=== PATIENT | female | born 1975 | race Caucasian/White ===

== ENCOUNTER 2017-05-18 13:22 | Emergency (ER) | payer OTHER ==
[~2017-05-18] VITALS: Wt 74.8 kg
[~2017-05-18 13:22] MED LIST: 'PARAFON FORTE500 M1 PO; BACTRIM DS 8001 TA1 PO; CLEOCIN HCL300 MG PO; FUROSEMIDE20 M1 PO; HYDROCODONE BIT1 T11 PO; IBU800 MG PO; NAPROSYN500 MG PO; NORCO 5-325 TA1 EACH PO; PENICILLIN VK500 MG PO; PENICILLIN-VK500 M1 PO; PREDNISONE20 M1 PO; PYRIDIUM200 MG PO; TORADOL10 MG PO; VICODIN 5-3001 EACH PO; VICODIN 5/500 505 MG PO
[2017-05-18] MEDS ORDERED: CLEOCIN HCL150 MG PO (13:31)
[2017-05-18 14:01] LABS: BASO % 0.3 % (0.0-1.0); EOS # 0.1 10*3/uL (0.0-0.4); EOS % 0.6 % (1.0-4.0); HEMATOCRIT 34.2 % (37.0-47.0); HEMOGLOBIN 11.7 g/dl (12.0-16.0); IG # 0.1 10*3/uL (0.0-0.1); LYMPH # 2.2 10*3/uL (1.3-4.4); LYMPH % 21.2 % (27.0-41.0); MEAN CELL VOLUME 94.5 fl (81.0-99.0); MEAN CORPUSCULAR HGB 32.3 pg (27.0-31.0); MEAN CORPUSCULAR HGB CONC 34.2 g/dl (33.0-37.0); MEAN PLATELET VOLUME 8.6 fl (9.6-12.3); MONO # 0.7 10*3/uL (0.1-1.0); MONO % 6.6 % (3.0-9.0); NEUT # 7.3 10*3/uL (2.3-7.9); NEUT % 70.6 % (47.0-73.0); PLATELET COUNT AUTOMATED 394 10*3/uL (130-400); RED BLOOD COUNT 3.62 10*6/uL (4.10-5.10); RED CELL DISTRI WIDTH 13.5 % (0-14.5); WHITE BLOOD COUNT 10.4 10*3/uL (4.8-10.8)
[2017-05-18 14:16] LABS: ALBUMIN 2.4 gm/dl (3.1-4.5); ALKALINE PHOSPHATASE 65 U/L (45-117); BILIRUBIN, TOTAL 0.2 mg/dl (0.2-1.0); BUN 7 mg/dl (7-24); CARBON DIOXIDE 30 mmol/L (21-32); CHLORIDE 102 mmol/L (98-107); EST GLOM FILT AFRICAN AMERICAN > 60 ml/min; GLUCOSE 83 mg/dL (65-99); POTASSIUM 2.7 mmol/L (3.5-5.1); SGOT/AST 10 IU/L (3-35); SGPT/ALT 12 U/L (12-78); SODIUM 141 mmol/L (136-145); TOTAL PROTEIN 6.3 gm/dL (6.4-8.2)
[2017-05-18] MEDS ORDERED: HYDROCODONE BIT1 T11 PO (15:58)
== END 2017-05-18 16:18 | disposition home or self-care (01) ==
LOC: ED 13:22
PROVIDERS: Nurse Practitioner Family
DX: N93.9 Abnormal uterine and vaginal bleeding, unspecified (principal)

== ENCOUNTER 2017-08-31 09:09 | Emergency (ER) | payer OTHER ==
[~2017-08-31] VITALS: Wt 77.1 kg
[~2017-08-31 09:09] MED LIST changes: +CLEOCIN HCL150 MG PO
[2017-08-31] MEDS ORDERED: AMOXICILLIN500 M2 PO (09:38)
[2017-08-31] MEDS ORDERED: NAPROSYN500 MG PO (09:38)
== END 2017-08-31 09:50 | disposition home or self-care (01) ==
LOC: ED 09:09
DX: K04.7 Periapical abscess without sinus (principal)

== ENCOUNTER 2017-09-08 06:54 | Emergency (ER) | payer OTHER ==
[~2017-09-08] VITALS: Ht 160 cm; Wt 77.1 kg
[~2017-09-08 06:54] MED LIST changes: +AMOXICILLIN500 M2 PO
[2017-09-08 07:43] LABS: BASO # 0.1 10*3/uL (0.0-0.1); BASO % 0.9 % (0.0-1.0); EOS # 0.2 10*3/uL (0.0-0.4); EOS % 1.8 % (1.0-4.0); HEMATOCRIT 37.6 % (37.0-47.0); HEMOGLOBIN 12.4 g/dl (12.0-16.0); LYMPH # 2.5 10*3/uL (1.3-4.4); LYMPH % 21.9 % (27.0-41.0); MEAN CELL VOLUME 96.9 fl (81.0-99.0); MEAN PLATELET VOLUME 8.4 fl (9.6-12.3); MONO # 0.6 10*3/uL (0.1-1.0); MONO % 5.7 % (3.0-9.0); NEUT # 7.8 10*3/uL (2.3-7.9); PLATELET COUNT AUTOMATED 517 10*3/uL (130-400); RED BLOOD COUNT 3.88 10*6/uL (4.10-5.10); RED CELL DISTRI WIDTH 13.8 % (0-14.5); WHITE BLOOD COUNT 11.3 10*3/uL (4.8-10.8)
[2017-09-08 08:06] LABS: ALBUMIN 3.3 gm/dl (3.1-4.5); ALKALINE PHOSPHATASE 42 U/L (45-117); BUN 9 mg/dl (7-24); CHLORIDE 108 mmol/L (98-107); CREATININE 0.65 mg/dL (0.55-1.02); LIPASE 103 U/L (73-393); MAGNESIUM 2.3 mg/dL (1.5-2.1); POTASSIUM 3.6 mmol/L (3.5-5.1); SGOT/AST 10 IU/L (3-35); SGPT/ALT 14 U/L (12-78); SODIUM 140 mmol/L (136-145); TOTAL PROTEIN 6.4 gm/dL (6.4-8.2)
[2017-09-08 09:00] LABS: BILIRUBIN 1+ (NEGATIVE); BLOOD 3+ (NEGATIVE); CLARITY TURBID (CLEAR); COLOR RED (YELLOW); GLUCOSE NEGATIVE (NEGATIVE); KETONE TRACE (NEGATIVE); LEUKO ESTERASE 2+ (NEGATIVE); NITRITE POSITIVE (NEGATIVE); SPECIFIC GRAVITY 1.015 (1.005-1.030)
[2017-09-08 09:15] LABS: RBC TNTC rbc/hpf (0-2)
[2017-09-08] MEDS ORDERED: MACROBID100 M1 PO (09:29)
[2017-09-09] MEDS ORDERED: NORCO 5-325 TA1 EACH PO (16:15)
[2017-09-13] MEDS ORDERED: PERCOCET 5-3251 EACH PO (14:49)
[2017-09-13] MEDS ORDERED: ZOFRAN8 M1 PO (14:56)
== END 2017-09-08 10:36 | disposition home or self-care (01) ==
LOC: ED 06:54
PROVIDERS: Emergency Medicine
DX: O26.891 Other specified pregnancy related conditions, first trimester (principal); N39.0 Urinary tract infection, site not specified; Z3A.00 Weeks of gestation of pregnancy not specified

== ENCOUNTER 2017-09-09 13:57 | Emergency (ER) | payer OTHER ==
[~2017-09-09] VITALS: Ht 160 cm; Wt 77.1 kg
[~2017-09-09 13:57] MED LIST changes: +MACROBID100 M1 PO
[2017-09-09 14:50] LABS: BASO # 0.1 10*3/uL (0.0-0.1); BASO % 0.8 % (0.0-1.0); EOS # 0.3 10*3/uL (0.0-0.4); HEMATOCRIT 34.1 % (37.0-47.0); HEMOGLOBIN 11.4 g/dl (12.0-16.0); LYMPH # 3.2 10*3/uL (1.3-4.4); LYMPH % 25.5 % (27.0-41.0); MEAN CELL VOLUME 96.6 fl (81.0-99.0); MEAN CORPUSCULAR HGB 32.3 pg (27.0-31.0); MEAN CORPUSCULAR HGB CONC 33.4 g/dl (33.0-37.0); MEAN PLATELET VOLUME 8.4 fl (9.6-12.3); MONO # 0.6 10*3/uL (0.1-1.0); MONO % 4.8 % (3.0-9.0); NEUT # 8.3 10*3/uL (2.3-7.9); NEUT % 66.6 % (47.0-73.0); PLATELET COUNT AUTOMATED 443 10*3/uL (130-400); RED BLOOD COUNT 3.53 10*6/uL (4.10-5.10); RED CELL DISTRI WIDTH 13.7 % (0-14.5); WHITE BLOOD COUNT 12.4 10*3/uL (4.8-10.8)
[2017-09-09 14:56] LABS: BILIRUBIN NEGATIVE (NEGATIVE); BLOOD 3+ (NEGATIVE); CLARITY CLOUDY (CLEAR); COLOR YELLOW (YELLOW); GLUCOSE NEGATIVE (NEGATIVE); KETONE TRACE (NEGATIVE); LEUKO ESTERASE TRACE (NEGATIVE); NITRITE NEGATIVE (NEGATIVE); UROBILINOGEN 0.2 E.U./dl (0.2-1.0)
[2017-09-09 15:04] LABS: ALBUMIN 3.6 gm/dl (3.1-4.5); ALKALINE PHOSPHATASE 48 U/L (45-117); BUN 10 mg/dl (7-24); CHLORIDE 104 mmol/L (98-107); CREATININE 0.74 mg/dL (0.55-1.02); POTASSIUM 3.2 mmol/L (3.5-5.1); SGOT/AST 14 IU/L (3-35); SGPT/ALT 16 U/L (12-78); SODIUM 137 mmol/L (136-145); TOTAL PROTEIN 6.6 gm/dL (6.4-8.2)
[2017-09-09 15:09] LABS: BACTERIA 2+; RBC 51-100 rbc/hpf (0-2)
[2017-09-09] MEDS ORDERED: NORCO 5-325 TA1 EACH PO (16:15)
[2017-09-13] MEDS ORDERED: PERCOCET 5-3251 EACH PO (14:49)
[2017-09-13] MEDS ORDERED: ZOFRAN8 M1 PO (14:56)
== END 2017-09-09 16:30 | disposition home or self-care (01) ==
LOC: ED 13:57
PROVIDERS: Physician Assistant
DX: O20.0 Threatened abortion (principal); Z3A.01 Less than 8 weeks gestation of pregnancy

== ENCOUNTER → 2017-09-11 | Outpatient (CLI) | payer OTHER ==
[~2017-09-11] MED LIST changes: +PERCOCET 5-3251 EACH PO; +ZOFRAN8 M1 PO
[2017-09-11 16:57] LABS: HEMATOCRIT 35.1 % (37.0-47.0); HEMOGLOBIN 11.6 g/dl (12.0-16.0)
== END | disposition home or self-care (01) ==
LOC: LAB 16:35
PROVIDERS: Obstetrics & Gynecology
DX: O09.521 Supervision of elderly multigravida, first trimester (principal); O46.91 Antepartum hemorrhage, unspecified, first trimester; O26.891 Other specified pregnancy related conditions, first trimester; R52 Pain, unspecified; Z3A.01 Less than 8 weeks gestation of pregnancy

== ENCOUNTER → 2017-09-13 | Day surgery (SDC) | payer OTHER ==
[2017-09-13] VITALS (8 sets, daily range): BP systolic 111–140; BP diastolic 56–78
[~2017-09-13] VITALS: Ht 172.7 cm; Wt 77.1 kg
--- NOTE | ~2017-09-13 | O ---
[place], [place] OPERATIVE NOTE NAME: BEBETO MCMAHAN [facility] #: [id number] UNIT #: [id number] ROOM: DOCTOR: MARIAM OTTO MD BIRTHDATE: [birth year] DOS: 09/13/2017 PREOPERATIVE DIAGNOSES: A 6-7 week missed with heavy bleeding, but also with pelvic pain and to date no passage of tissue, also plateauing of the beta hCGs in the descending manner, somewhat worrisome for ectopic . POSTOPERATIVE DIAGNOSES: A 6-7 week missed with heavy bleeding, but also with pelvic pain and to date no passage of tissue, also plateauing of the beta hCGs in the descending manner, somewhat worrisome for ectopic , but despite the fact that we removed what appeared to be a gestational sac, i.e. placenta, etc., frozen section did not validate chorionic villi and therefore diagnostic laparoscopy had been performed which revealed no evidence of an ectopic anywhere within the pelvis. OPERATION: D and C, frozen section, diagnostic laparoscopy. SURGEON: Mariam Otto M.D. ANESTHESIA: General. ESTIMATED BLOOD LOSS: Really minimal with the case, this was replaced with IV fluids and Toradol. COMPLICATIONS: There were no complications. CONDITION: The patient's condition to recovery stable. OPERATIVE SUMMARY: The patient was taken to the operating room in supine position, MAC anesthesia, initially lithotomy position, prepped and draped and a straight cath of the bladder. The cervix was grasped, uterus sounded to 8.5 cm and a thorough curettage was then undertaken with but using stone forceps and 2 different curettes. We did remove what appeared to be a gestational sac and placenta as well as multiple fragments. This tissue was sent for frozen section per pathology, but unfortunately the report was not consistent with chorionic villi or products of conception. We therefore repositioned the patient, administered general anesthesia with endotracheal intubation and then proceeded with diagnostic laparoscopy. An incision was made infraumbilical and suprapubically. We placed a 5 mm trocar sleeve and laparoscope through the infraumbilical incision. We under direct visualization as I said and we then insufflated with CO2. We then placed another 5 mm trocar sleeve in the suprapubic incision and a probe. We expected the pelvis ____ the uterus to be normal size and configuration. The cornual regions were completely normal. The fallopian tubes were completely normal. Both ovaries were completely normal. The anterior and posterior cul-de-sac were normal and all supporting structures were normal, i.e. there was no evidence, not even a hint of an ectopic within the pelvis. The appendix, ascending and descending colon, liver and gallbladder were all visualized and grossly appeared to be within normal limits. Once this survey was completed, we concluded that the patient in fact did have a missed and that the D and C should be curative for this. We will await final path report to confirm this final assessment. If there is any [place], [place] OPERATIVE NOTE NAME: BEBETO MCMAHAN UNIT #: [id number] ROOM: DOCTOR: MARIAM OTTO MD BIRTHDATE: [birth year] question still beta hCGs will be followed down to 0. Finally, the patient is Rh positive and does not need RhoGAM. Once we were completed with the case, the incisions were closed with subcuticular 3-0 Monocryl. Steri-Strips and dressings placed. We removed our instrumentation from the vagina and noting no excessive vaginal bleeding, the patient was cleaned off, taken out of lithotomy position, awakened, extubated and transferred to recovery in satisfactory condition having had clear and adequate urine output, stable sponge and instrument count, good hemostasis and stable vital signs. MARIAM OTTO MD CM:OPRECORD:OPERATIVE NOTE [id number] MARIAM OTTO MD 09/13/17 1608 interface
--- NOTE | ~2017-09-13 | WRIGHTHP ---
[place], [place] PATIENT HISTORY AND PHYSICAL EXAM NAME: BBEETO MCMAHAN [facility] #: [id number] UNIT #: [id number] ROOM: DOCTOR: MARIAM MEJIA MD BIRTHDATE: [birth year] DOS: 09/13/2017 HISTORY OF PRESENT ILLNESS: This patient is a 42-year-old white female who is a 5, para 3, AB 1 and now either pending AB 2 or an ectopic , who presented to the office, 09/12/2017, having been seen in the Emergency Room on both September 08 and September 09 complaining of severe pelvic pain. Initially, she claimed right-sided pelvic pain. When I reviewed the ultrasound from September 09, it was normal, except for the fact that she had a 6 weeks and 1 day gestational sac, but no yolk sac or fetus was identified. When questioning the patient specifically, she really did not have any unilateral pain, but more suprapubic and central. She had the ultrasound and this had been on her second visit to the ER. Her hCGs have decreased from 4082 on September 08 to 2277 on September 11, which is in a missed situation, reasonably normal decrease over 2-3 day period. I reviewed with the patient the situation, the significant uterine cramping, etc., but she has passed no tissue at this point. Her bleeding also was not overly significant per own description. The patient also had had some change in her H and H originally from hemoglobin of 11.4/34.1 on September 09 to now 10.4 over approximately 32. She had also on her ER visit on September 08 had another H and H, which had revealed hemoglobin of 12.4, so essentially, although, she has had a number of lab tests done from September 08 to September 13, her hemoglobin has decreased from 12.4 to about 10.4. On examination on , the patient was uncomfortable in a generalized way, but there was no lateralizing discomfort, etc. I had advised her that we would perform another beta hCG this morning, which returned 1912. I also advised her should she have any acute unilateral or lateralizing pain to follow up DAPHNE. The patient because her beta hCG had really plateaued, because of the change in the H and H, because of her symptoms, I advised the patient that a D and C with frozen section and possible laparoscopy to rule out ectopic was indicated. To that end, we reviewed the risks and benefits, indications, potential complications and alternatives of the procedures just outlined above. She did state understanding and consent will be signed in the hospital early this afternoon at the time of surgery. PAST MEDICAL HISTORY: Reveals 3 vaginal deliveries, 1 miscarriage in May 2017 and now this situation. She states that she has had no other significant illnesses, operations or injuries. She is interested in a tubal ligation, but understands that with her insurance, we cannot do a tubal ligation for 30 days. ALLERGIES: She has no known allergies. SOCIAL HISTORY: Does not drink and does not smoke. REVIEW OF SYSTEMS: Stable. FAMILY HISTORY: Really noncontributory to this present situation. PHYSICAL EXAMINATION: GENERAL: Revealed a pleasant white female, although she was in some distress. VITAL SIGNS: She is 5 feet 3 inches, 184 pounds, BMI is 32.6, blood pressure 142/76 and her O2 sat is 99%, with no history of sleep apnea. [place], [place] PATIENT HISTORY AND PHYSICAL EXAM [id number] UNIT #: [id number] ROOM: DOCTOR: MARIAM MEJIA MD BIRTHDATE: [birth year] HEENT AND NECK: Stable. LUNGS: Stable. CARDIAC: Stable. BREASTS: Stable. ABDOMEN: Soft, but generalized tender in the lower pelvis. EXTREMITIES: Grossly intact. NEUROLOGIC: Grossly intact. GENITOURINARY: External genitalia, vagina normal. Cervix was closed. There was a small amount of blood per cervical os. Uterus itself was somewhat tender, anteverted and anteflexed, enlarged consistent with the ultrasonographic dating. Adnexa gently were examined and revealed no significant mass and no tenderness bilaterally. I should again mention that the ultrasound that had been performed did not indicate any evidence of any atypicality in either adnexa. Based on this information, the patient has a threatened , but one cannot rule out ectopic as the beta hCGs have plateaued and are not decreasing according to what is anticipated and secondly she has had a decrease in her H and H from 12.4 to 10.4 over the last 5 days. This may be somewhat due to the fact that there has been a fair amount of blood being drawn, but one has to be concerned about leaking ectopic as well. To that end, the patient will undergo a D and C with frozen section looking for chorionic villi and this has been reviewed with the pathologist preoperatively. If we do not identify villi or if I have any other suspicion, we will proceed with diagnostic laparoscopy and removal of an ectopic if it is noted. If there is any atypicality on the other fallopian tube, this will also be removed as a precaution against repeat ectopic . The patient stated understanding to this information and signed her consent and is scheduled for surgery earlier this afternoon. MARIAM MEJIA MD CM:HISPHYS:PATIENT HISTORY AND PHYSICAL EXAMINATION 1146 1251 MARIAM MEJIA MD 09/13/17 1321 interface
== END | disposition home or self-care (01) ==
LOC: SDC 11:43
DX: O02.1 Missed abortion (principal); N71.0 Acute inflammatory disease of uterus; Z3A.01 Less than 8 weeks gestation of pregnancy

== ENCOUNTER → 2017-10-23 | Day surgery (SDC) | payer OTHER ==
[2017-10-18 11:29] LABS: BASO # 0.1 10*3/uL (0.0-0.1); BASO % 0.7 % (0.0-1.0); EOS # 0.2 10*3/uL (0.0-0.4); EOS % 1.7 % (1.0-4.0); HEMATOCRIT 35.8 % (37.0-47.0); HEMOGLOBIN 11.5 g/dl (12.0-16.0); LYMPH # 2.1 10*3/uL (1.3-4.4); MEAN CELL VOLUME 99.2 fl (81.0-99.0); MEAN CORPUSCULAR HGB 31.9 pg (27.0-31.0); MEAN CORPUSCULAR HGB CONC 32.1 g/dl (33.0-37.0); MEAN PLATELET VOLUME 9.3 fl (9.6-12.3); MONO # 0.5 10*3/uL (0.1-1.0); MONO % 5.2 % (3.0-9.0); NEUT % 68.1 % (47.0-73.0); PLATELET COUNT AUTOMATED 375 10*3/uL (130-400); RED BLOOD COUNT 3.61 10*6/uL (4.10-5.10); RED CELL DISTRI WIDTH 15.7 % (0-14.5); WHITE BLOOD COUNT 8.9 10*3/uL (4.8-10.8)
[~2017-10-23] VITALS: Ht 157.4 cm; Wt 79.4 kg
--- NOTE | ~2017-10-23 | WRIGHTHP ---
[place], [place] PATIENT HISTORY AND PHYSICAL EXAM NAME: BEBETO MCMAHAN [facility] #: [id number] UNIT #: [id number] ROOM: DOCTOR: MARIAM MEJIA MD BIRTHDATE: [birth year] DOS: 10/23/2017 DATE OF SURGERY: 10/23/2017 HISTORY OF PRESENT ILLNESS: This 42-year-old white female, 6, para 3, AB 3 is somewhat festinating in her history and that I had seen the patient on 09/12/2017 with what appeared to be a miscarriage occurring. She had been seen in the Emergency Room on 09/08/2017 and 09/09/2017 with severe pelvic pain, particularly right sided pain. Beta hCGs have been followed, decreasing down normally while and then they plateaued. She continued to have pain and we opted to proceed with D and C, frozen section and laparoscopy if necessary. The patient did desire tubal ligation, but unfortunately due to insurance requirements, she had to wait 30 days and was not eligible for this tubal and therefore we said we would do the tubal once everything else has resolved. To that end, the patient did have the D and C and frozen section on 09/13/2017 and then unfortunately, the pathology was unable to visualize any villi at that time. Therefore, laparoscopy was performed revealing a completely normal pelvis. The patient's hCG is since following back to 0 and she is now doing well and now desires a tubal ligation. The risks and benefits, indications, potential complications, alternatives and failure rate were given for bilateral partial salpingectomy per guidelines, understanding, stated and consent signed and she is now scheduled for the laparoscopy and bilateral salpingectomy on 10/23/2017. PAST MEDICAL HISTORY: Unchanged with the addition of the recent information on 09/13/2017, spontaneous miscarriage. She has had 3 vaginal deliveries and 3 miscarriages. PAST SURGICAL HISTORY: She has had a Pap recently, which was negative as well. SOCIAL HISTORY: She does not smoke, does not drink. ALLERGIES: She has no known allergies. MEDICATIONS: She is taking no medications. REVIEW OF SYSTEMS: Otherwise is stable. FAMILY HISTORY: Negative with her father , but the etiology unknown. Mother is alive with no known problems and rest of the family history is negative. PHYSICAL EXAMINATION: GENERAL: Reveals a pleasant white female. She is 5 feet 3 inches, 184 pounds, BMI is 32.6. VITAL SIGNS: Blood pressure is 135/76, oxygen sat 98.9%. She has no history of sleep apnea and did tolerate most recent laparoscopy without complication. HEENT: Grossly intact. NECK: Grossly intact. LUNGS: Grossly intact. [place], [place] PATIENT HISTORY AND PHYSICAL EXAM [facility]: [id number] #: [id number] ROOM: DOCTOR: MARIAM MEJIA MD BIRTHDATE: [birth year] CARDIAC: Grossly intact. BREASTS: Grossly intact. ABDOMEN: Grossly intact. EXTREMITIES: Grossly intact. NEUROLOGIC: Grossly intact. GENITOURINARY: External genitalia, vagina and cervix normal. Uterus anteverted, anteflexed, normal size, configuration, nontender and mobile. Adnexa negative. RECTAL: Deferred. ASSESSMENT: The patient desires fertility termination. PLAN: To proceed with a laparoscopic bilateral salpingectomy on 10/23/2017. MARIAM MEJIA MD CM:HISPHYS:PATIENT HISTORY AND PHYSICAL EXAMINATION 1001 1232 MARIAM MEJIA MD 10/19/17 0611 interface
--- NOTE | ~2017-10-23 | O ---
[place], [place] OPERATIVE NOTE NAME: BEBETO MCMAHAN [facility] #: [id number] UNIT #: [id number] ROOM: DOCTOR: MARIAM OTTO MD BIRTHDATE: [birth year] DOS: 10/23/2017 PREOPERATIVE DIAGNOSIS: Desires fertility termination. POSTOPERATIVE DIAGNOSIS: Desires fertility termination. OPERATIONS: Laparoscopic bilateral salpingectomy. SURGEON: Mariam Otto MD ANESTHESIA: General. ESTIMATED BLOOD LOSS: Minimal. REPLACEMENTS: IV fluids and Toradol. COMPLICATIONS: There were no complications. The patient's condition recovery stable. OPERATIVE SUMMARY: The patient was taken to the operating room in supine position, general anesthesia, endotracheal intubation, lithotomy position, prepped and draped in routine manner. Cervix grasped with a tenaculum and a cervical manipulator placed. Catheter was placed within the bladder to straight drain. Infraumbilical, suprapubic and right lower quadrant incisions were made. Through the infraumbilical incision, a 5 mm trocar sleeve and laparoscope were placed under direct visualization followed by insufflation of CO2 followed by placement of an 8 mm trocar and sleeve through the suprapubic site and a 5 mm trocar and sleeve through the right lower quadrant site. Each fallopian tube was then excised using a LigaSure device without complication. The rest of the pelvis and upper abdomen as well as the appendix were all normal as had been previously described in the laparoscopic report a little over one month ago. The reason I was not able to do the tubal ligation at that time is due to the Medicaid stipulations and restrictions that did not allow a tubal ligation until after 30 days of consent and therefore, the patient was brought back fully aware of the inability to perform the tubal at the last laparoscopy, but certainly able to have it perform today and she had it performed successfully. Once we had completed our bilateral salpingectomy and noted that the rest of the pelvis, ovaries, uterus and anterior and posterior cul-de-sac and all supporting structures bilaterally were continued to be normal, we removed our 2 lower abdominal trocar sleeves and instrumentation and noting no excessive anterior abdominal bleeding, CO2 was allowed to escape, followed by removal of the infraumbilical trocar sleeve and laparoscope. Each incision was closed with subcuticular 3-0 Monocryl suture. Steri-Strips placed and dressings placed. Instrumentation was removed from the vagina and noting good hemostasis, the patient had the catheter removed as well with the urine out clear about 50 mL. The patient was cleaned off, taken out of lithotomy position, awakened, extubated, and transferred to recovery in satisfactory condition. Her vital signs were stable. Her sponge and instrument count was stable. Hemostasis was achieved. [place], [place] OPERATIVE NOTE NAME: BEBETO MCMAHAN UNIT #: [id number] ROOM: DOCTOR: MARIAM OTTO MD BIRTHDATE: [birth year] MARIAM OTTO MD CM:OPRECORD:OPERATIVE NOTE 1341 1353 MARIAM OTTO MD 10/23/17 1353 interface
[2017-10-23 11:00] VITALS: BP 123/75
[2017-10-23 13:40] VITALS: BP 158/81
[2017-10-23 13:55] VITALS: BP 137/76
[2017-10-23 14:17] VITALS: BP 149/68
[2017-10-23 14:50] VITALS: BP 151/80
== END | disposition home or self-care (01) ==
LOC: SDC 10-18 09:30
PROVIDERS: Obstetrics & Gynecology
DX: Z30.2 Encounter for sterilization (principal); Z79.899 Other long term (current) drug therapy; Z98.890 Other specified postprocedural states; Z87.440 Personal history of urinary (tract) infections

== ENCOUNTER 2017-11-29 06:49 | Emergency (ER) | payer OTHER ==
[~2017-11-29] VITALS: Ht 157.4 cm; Wt 77.1 kg
[2017-11-29 07:19] LABS: BASO # 0.1 10*3/uL (0.0-0.1); BASO % 0.6 % (0.0-1.0); EOS # 0.1 10*3/uL (0.0-0.4); EOS % 0.8 % (1.0-4.0); HEMATOCRIT 41.4 % (37.0-47.0); HEMOGLOBIN 13.7 g/dl (12.0-16.0); LYMPH # 1.8 10*3/uL (1.3-4.4); LYMPH % 17.2 % (27.0-41.0); MEAN CELL VOLUME 94.3 fl (81.0-99.0); MEAN CORPUSCULAR HGB 31.2 pg (27.0-31.0); MEAN CORPUSCULAR HGB CONC 33.1 g/dl (33.0-37.0); MEAN PLATELET VOLUME 8.9 fl (9.6-12.3); MONO # 0.5 10*3/uL (0.1-1.0); MONO % 4.3 % (3.0-9.0); NEUT # 8.1 10*3/uL (2.3-7.9); NEUT % 76.7 % (47.0-73.0); PLATELET COUNT AUTOMATED 412 10*3/uL (130-400); RED BLOOD COUNT 4.39 10*6/uL (4.10-5.10); RED CELL DISTRI WIDTH 14.4 % (0-14.5); WHITE BLOOD COUNT 10.6 10*3/uL (4.8-10.8)
[2017-11-29 07:27] LABS: ACT PARTIAL THROMBO TIME 26.3 SECONDS (20.8-31.5)
[2017-11-29 07:35] LABS: ALBUMIN 3.8 gm/dl (3.1-4.5); ALKALINE PHOSPHATASE 51 U/L (45-117); BUN 8 mg/dl (7-24); CHLORIDE 105 mmol/L (98-107); CREATININE 0.86 mg/dL (0.55-1.02); LIPASE 68 U/L (73-393); POTASSIUM 3.2 mmol/L (3.5-5.1); SGOT/AST 9 IU/L (3-35); SGPT/ALT 16 U/L (12-78); SODIUM 138 mmol/L (136-145)
[2017-11-29 08:12] LABS: BILIRUBIN NEGATIVE (NEGATIVE); BLOOD NEGATIVE (NEGATIVE); CLARITY CLEAR (CLEAR); COLOR YELLOW (YELLOW); GLUCOSE NEGATIVE (NEGATIVE); KETONE TRACE (NEGATIVE); LEUKO ESTERASE TRACE (NEGATIVE); NITRITE NEGATIVE (NEGATIVE)
[2017-11-29 08:32] LABS: BACTERIA 1+; MUCOUS 2+
[2017-11-29] MEDS ORDERED: ZOFRAN ODT4 MG SL (10:44)
== END 2017-11-29 10:47 | disposition home or self-care (01) ==
LOC: ED 06:49
PROVIDERS: Emergency Medicine
DX: R10.30 Lower abdominal pain, unspecified (principal); R11.10 Vomiting, unspecified; N83.209 Unspecified ovarian cyst, unspecified side; Z79.899 Other long term (current) drug therapy

== ENCOUNTER 2017-12-01 13:03 | Inpatient (IN) | payer OTHER ==
[~2017-12-01] VITALS: Ht 157.4 cm; Wt 84.0 kg
--- NOTE | ~2017-12-01 | CON ---
[place], [place] REPORT OF CONSULTATION NAME: BEBETO MCMAHAN UNIT #: [id number] ROOM: 503 DOCTOR: SANDY LONG DMD BIRTHDATE: [birth year] DOS: The patient was admitted yesterday for a left-sided facial swelling. The patient states marginal improvement today. Denies any difficulty swallowing or breathing. PHYSICAL EXAMINATION: On exam, moderate left-sided facial swelling extending from the submental region to the submandibular area. There is slight redness of the left jaw and left lateral neck. Intraoral exam shows no identifiable caries noted on the mandibular left. The patient states she had a root canal done at [facility] within the past 6 months. There is no buccal space swelling noted, no tenderness. Tooth #21 is tender to palpation. Sublingual area nontender. No notable swelling. Submental area, firm swelling. There is either an ulcer or parulis noted on the lingual side of the mandible, apparently associated with teeth numbers 20 or 21. No purulence noted. ASSESSMENT AND PLAN: Discussed treatment recommendations with the patient. Recommend IV antibiotics until firm swelling has started to improve and then discharge on oral antibiotics. The patient is to see private dentist for treatment. There does not appear to be any type of drainable abscess. The patient can call the office if needed at [phone]. SANDY LONG DMD CM:CONSTR:REPORT OF CONSULTATION 1513 12/03/17 1220 interface
[~2017-12-01 13:03] MED LIST changes: +ZOFRAN ODT4 MG SL
[2017-12-01 13:08] VITALS: BP 132/86
[2017-12-01 13:43] LABS: BASO # 0.1 10*3/uL (0.0-0.1); BASO % 0.5 % (0.0-1.0); EOS # 0.1 10*3/uL (0.0-0.4); EOS % 0.6 % (1.0-4.0); HEMATOCRIT 38.4 % (37.0-47.0); HEMOGLOBIN 13.4 g/dl (12.0-16.0); LYMPH # 1.9 10*3/uL (1.3-4.4); LYMPH % 11.6 % (27.0-41.0); MEAN CELL VOLUME 92.5 fl (81.0-99.0); MEAN CORPUSCULAR HGB 32.3 pg (27.0-31.0); MEAN CORPUSCULAR HGB CONC 34.9 g/dl (33.0-37.0); MONO % 6.2 % (3.0-9.0); NEUT # 13.1 10*3/uL (2.3-7.9); NEUT % 80.6 % (47.0-73.0); PLATELET COUNT AUTOMATED 380 10*3/uL (130-400); RED BLOOD COUNT 4.15 10*6/uL (4.10-5.10); RED CELL DISTRI WIDTH 14.2 % (0-14.5); WHITE BLOOD COUNT 16.3 10*3/uL (4.8-10.8)
[2017-12-01 13:57] LABS: ALBUMIN 3.6 gm/dl (3.1-4.5); ALKALINE PHOSPHATASE 54 U/L (45-117); BUN 7 mg/dl (7-24); CHLORIDE 101 mmol/L (98-107); CREATININE 0.75 mg/dL (0.55-1.02); SGOT/AST 7 IU/L (3-35); SGPT/ALT 12 U/L (12-78); SODIUM 136 mmol/L (136-145); TOTAL PROTEIN 7.1 gm/dL (6.4-8.2)
[2017-12-01 16:48] VITALS: BP 153/75
[2017-12-01 16:52] VITALS: BP 153/75
[2017-12-01 20:00] VITALS: BP 117/63
[2017-12-02] VITALS: BP 110/55
[2017-12-02 06:48] LABS: BASO # 0.1 10*3/uL (0.0-0.1); BASO % 0.7 % (0.0-1.0); EOS # 0.3 10*3/uL (0.0-0.4); EOS % 2.9 % (1.0-4.0); HEMATOCRIT 34.4 % (37.0-47.0); LYMPH # 2.7 10*3/uL (1.3-4.4); LYMPH % 26.1 % (27.0-41.0); MEAN CORPUSCULAR HGB 32.1 pg (27.0-31.0); MEAN CORPUSCULAR HGB CONC 32.8 g/dl (33.0-37.0); MEAN PLATELET VOLUME 9.2 fl (9.6-12.3); MONO # 0.8 10*3/uL (0.1-1.0); MONO % 8.1 % (3.0-9.0); NEUT # 6.4 10*3/uL (2.3-7.9); NEUT % 61.6 % (47.0-73.0); PLATELET COUNT AUTOMATED 322 10*3/uL (130-400); RED BLOOD COUNT 3.52 10*6/uL (4.10-5.10); RED CELL DISTRI WIDTH 14.5 % (0-14.5); WHITE BLOOD COUNT 10.3 10*3/uL (4.8-10.8)
[2017-12-02 07:07] LABS: HEMOGLOBIN 11.3 g/dl (12.0-16.0); MEAN CELL VOLUME 97.7 fl (81.0-99.0)
[2017-12-02 07:18] LABS: ALBUMIN 2.5 gm/dl (3.1-4.5); ALKALINE PHOSPHATASE 40 U/L (45-117); BUN 9 mg/dl (7-24); CHLORIDE 108 mmol/L (98-107); CHOLESTEROL 89 mg/dL (<200); CREATININE 0.78 mg/dL (0.55-1.02); FREE T4 1.04 ng/dl (0.76-1.46); HDL CHOLESTEROL 35 mg/dl (40-60); LDL CHOLESTEROL 43 mg/dL (9-159); PHOSPHOROUS 2.8 mg/dL (2.5-4.9); POTASSIUM 3.6 mmol/L (3.5-5.1); SGOT/AST 7 IU/L (3-35); SGPT/ALT 10 U/L (12-78); SODIUM 142 mmol/L (136-145); TOTAL PROTEIN 5.4 gm/dL (6.4-8.2); TRIGLYCERIDES 57 mg/dl (<150); VLDL CHOLESTEROL 11 mg/dL (6-40)
[2017-12-02 07:36] VITALS: BP 118/68
[2017-12-02 07:44] LABS: VITAMIN D, 25-HYDROXY 9.3 ng/mL (30-100)
[2017-12-02 11:33] VITALS: BP 129/76
[2017-12-02 15:37] VITALS: BP 131/75
[2017-12-02 20:00] VITALS: BP 132/69
[2017-12-02] MEDS ORDERED: AMBIEN10 M1 PO (20:45)
[2017-12-03] VITALS: BP 108/61
[2017-12-03 05:58] LABS: BASO # 0.1 10*3/uL (0.0-0.1); BASO % 0.9 % (0.0-1.0); EOS # 0.3 10*3/uL (0.0-0.4); HEMATOCRIT 32.1 % (37.0-47.0); HEMOGLOBIN 10.2 g/dl (12.0-16.0); LYMPH # 2.2 10*3/uL (1.3-4.4); LYMPH % 28.6 % (27.0-41.0); MEAN CELL VOLUME 98.5 fl (81.0-99.0); MEAN CORPUSCULAR HGB 31.3 pg (27.0-31.0); MEAN CORPUSCULAR HGB CONC 31.8 g/dl (33.0-37.0); MEAN PLATELET VOLUME 9.3 fl (9.6-12.3); MONO # 0.5 10*3/uL (0.1-1.0); MONO % 6.8 % (3.0-9.0); NEUT # 4.5 10*3/uL (2.3-7.9); NEUT % 59.3 % (47.0-73.0); PLATELET COUNT AUTOMATED 300 10*3/uL (130-400); RED BLOOD COUNT 3.26 10*6/uL (4.10-5.10); RED CELL DISTRI WIDTH 14.5 % (0-14.5); WHITE BLOOD COUNT 7.5 10*3/uL (4.8-10.8)
[2017-12-03 06:12] LABS: BUN 8 mg/dl (7-24); CHLORIDE 110 mmol/L (98-107); CREATININE 0.68 mg/dL (0.55-1.02); POTASSIUM 3.9 mmol/L (3.5-5.1); SODIUM 141 mmol/L (136-145)
[2017-12-03 08:00] VITALS: BP 158/90
[2017-12-03 12:00] VITALS: BP 142/80
[2017-12-03 16:00] VITALS: BP 147/84
[2017-12-03 20:00] VITALS: BP 157/84
[2017-12-04] VITALS: BP 151/76
[2017-12-04 06:34] LABS: BASO # 0.1 10*3/uL (0.0-0.1); BASO % 0.8 % (0.0-1.0); EOS # 0.2 10*3/uL (0.0-0.4); EOS % 3.2 % (1.0-4.0); HEMOGLOBIN 10.3 g/dl (12.0-16.0); LYMPH # 2.3 10*3/uL (1.3-4.4); LYMPH % 31.1 % (27.0-41.0); MEAN CELL VOLUME 97.6 fl (81.0-99.0); MEAN CORPUSCULAR HGB 31.4 pg (27.0-31.0); MEAN CORPUSCULAR HGB CONC 32.2 g/dl (33.0-37.0); MEAN PLATELET VOLUME 9.2 fl (9.6-12.3); MONO # 0.5 10*3/uL (0.1-1.0); MONO % 6.2 % (3.0-9.0); NEUT # 4.4 10*3/uL (2.3-7.9); NEUT % 58.3 % (47.0-73.0); PLATELET COUNT AUTOMATED 326 10*3/uL (130-400); RED BLOOD COUNT 3.28 10*6/uL (4.10-5.10); RED CELL DISTRI WIDTH 14.4 % (0-14.5); WHITE BLOOD COUNT 7.5 10*3/uL (4.8-10.8)
[2017-12-04 06:57] LABS: BUN 6 mg/dl (7-24); CHLORIDE 109 mmol/L (98-107); CREATININE 0.71 mg/dL (0.55-1.02); POTASSIUM 3.7 mmol/L (3.5-5.1); SODIUM 141 mmol/L (136-145)
[2017-12-04 08:00] VITALS: BP 148/90
[2017-12-04] MEDS ORDERED: AUGMENTIN 875875 MG PO (11:59)
[2017-12-04] MEDS ORDERED: NORCO 5-325 TA1 EACH PO (12:47)
== END 2017-12-04 12:53 | disposition home or self-care (01) | DRG 871 ==
LOC: ED 13:03 → EDHOLD 15:02 → 5E 15:02
PROVIDERS: Internal Medicine; Nurse Practitioner Family; Student in an Organized Health Care Education/Training Program
DX: A41.9 Sepsis, unspecified organism (principal); E43 Unspecified severe protein-calorie malnutrition; L03.211 Cellulitis of face; E87.6 Hypokalemia; M27.2 Inflammatory conditions of jaws; N83.201 Unspecified ovarian cyst, right side; R60.0 Localized edema; R03.0 Elevated blood-pressure reading, without diagnosis of hypertension; Z87.440 Personal history of urinary (tract) infections; Z90.722 Acquired absence of ovaries, bilateral; Z83.79 Family history of other diseases of the digestive system; Z68.33 Body mass index [BMI] 33.0-33.9, adult

== ENCOUNTER 2022-06-06 01:04 | Emergency (ER) | payer OTHER ==
[~2022-06-06] VITALS: Ht 154.9 cm; Wt 90.7 kg
[~2022-06-06 01:04] MED LIST changes: +AMBIEN10 M1 PO; +AUGMENTIN 875875 MG PO
[2022-06-06] MEDS ORDERED: MEDROL DOSEPAK4 MG PO (03:25)
[2022-06-06] MEDS ORDERED: BENADRYL ALLERG25 M5 PO (03:25)
== END 2022-06-06 04:00 | disposition home or self-care (01) ==
LOC: ED 01:04
DX: L23.7 Allergic contact dermatitis due to plants, except food (principal); F17.200 Nicotine dependence, unspecified, uncomplicated; Z79.2 Long term (current) use of antibiotics; Z79.899 Other long term (current) drug therapy; Z87.42 Personal history of other diseases of the female genital tract

== ENCOUNTER → 2024-01-17 | Outpatient (CLI) | payer OTHER ==
[~2024-01-17] MED LIST changes: +BENADRYL ALLERG25 M5 PO; +MEDROL DOSEPAK4 MG PO
== END | disposition home or self-care (01) ==
LOC: MAMMO 08:15
PROVIDERS: ATTEND Nurse Practitioner Women's Health
DX: Z12.31 Encounter for screening mammogram for malignant neoplasm of breast (principal)